=== PATIENT | female | born 1980 | race Caucasian/White ===

== ENCOUNTER 2019-02-22 22:15 | Emergency (ER) | payer MEDICAID ==
[~2019-02-22] VITALS: Ht 172.7 cm; Wt 79.4 kg
[2019-02-22 22:32] VITALS: BP_SYST 124
[2019-02-22 23:57] VITALS: BP_SYST 124
== END 2019-02-22 23:57 | disposition home or self-care (01) ==
LOC: SED 22:15
DX: M77.11 Lateral epicondylitis, right elbow (principal)
CPT/HCPCS: 99283